=== PATIENT | male | born 1965 | race Caucasian/White ===

== ENCOUNTER → 2016-08-26 | Outpatient (CLI) | payer OTHER ==
[2016-08-26 15:32] LABS: BLOOD UREA NITROGEN 11 mg/dl (7-18); CARBON DIOXIDE 31 mmol/L (21-32); CHLORIDE 103 mmol/L (98-107); GLUCOSE 94 mg/dl (70-99); POTASSIUM 4.5 mmol/L (3.5-5.1); SODIUM 139 mmol/L (136-145)
[2016-08-26 15:39] LABS: CHOLESTEROL 163 mg/dl (0-200); CHOLESTEROL/HDL RATIO 3.5; FREE PSA 0.29 ng/ml; HDL CHOLESTEROL 46 mg/dl; LDL CHOLESTEROL CALCULATED 100 mg/dl; TRIGLYCERIDES 83 mg/dl (0-150); VERY LOW DENSITY LIPOPROT CALC 17 mg/dl
== END | disposition home or self-care (01) ==
LOC: C.LABMFLN 07:41
PROVIDERS: ATTEND Family Medicine
DX: Q21.1 Atrial septal defect (principal); Z13.220 Encounter for screening for lipoid disorders; R97.20 Elevated prostate specific antigen [PSA]

== ENCOUNTER 2019-05-31 09:18 | Inpatient (IN) ==
--- NOTE | 2019-05-18 13:36 | PAT Medication Instructions ---
Medication Instructions Date of Service May 18, 2019 Home Medications aspirin 81 mg PO QAM multivitamin 1 tab PO QAM ASK your prescriber and surgeon aspirin 81 mg PO QAM DO NOT take the morning of surgery multivitamin 1 tab PO QAM Other Notes If you have any questions please call us at [phone] or [phone] or [phone] or [phone]
--- NOTE | 2019-05-19 09:53 | Anesthesiology Consultation ---
Date of Service May 19, 2019 Assessment & Plan (1) Encounter for pre-operative examination: Chart Review Chart Review: Acceptable Risk for Surgery (pending cardio note ) and Patient seen in Pre Admission Testing Pt holding ASA 7-10 days prior to surgery- surgeon and cardio aware Pt scheduled to see cardio prior to surgery on 05/30/19 (cardio and surgeon aware day prior to surgery)- will attempt to get note. History Surgery Operation Date: 05/31/19 07:30 Proposed Procedures p Robotic Laparoscopic Assisted Radical Retropubic Prostatectomy, Possible Open, Pelvic Lymph Node Disection, Possible Tube Placement - Elan Salgado Height/Weight Height: 5 ft 8 in Weight: 92.1 kg Allergies Allergy/AdvReac Type Severity Reaction Status Date / Time banana Allergy Severe Swelling Verified 05/12/19 09:04 Penicillins Allergy Severe .Swelling Verified 05/12/19 09:04 Medications Home Medications Medication Instructions Recorded Confirmed Last Taken aspirin 81 mg PO QAM 11/02/18 05/12/19 Unknown multivitamin 1 tab PO QAM 01/05/19 05/12/19 Unknown Past Medical History Medical History (Updated 05/20/19 @ 15:05 by Jillian Fam PA-C) Atrial septal defect S/p repair (atrial septal defect secondary from repair [place] [facility] [place] ECHO showed no issues Hx of mitral valve disease S/P REPAIRED Prostate cancer 02/2019 TRALI (transfusion related acute lung injury) 2009 - [place] - AFTER MITRAL VALVE SURGERY NEED TRANSFUSION AND HAD REACTION AND DAMAGED LUNGS. WAS ON VENT FOR 3 WEEKS. RESIDUAL OCC SOB Exercise / Class Metabolic Activity II 4-5 Yardwork/Stairs/Walk up hill (one flight of stairs no chest pain or SOB) Past Family History Family History Father , 71yo Cancer metastatic prostate cancer Hypertension Heart murmur Mother Waldenstrom's syndrome Hypertension Sister No problems noted. Son No problems noted. Son No problems noted. Past Surgical History Surgical History H/O heart surgery Mitral valve prolapse repair;Complicated post op course with prolonged intubation H/O right knee surgery History of cholecystectomy Hx of cardiac cath 2009 --SMALL DEVICE IMPLANTED FOR PFO DONE AT [facility] Past Anesthesia History No Hx of Anesthesia Complications and No Family Hx of Anesthesia Complications History of PONV No Hx of PONV and No Hx of Motion Sickness Social History Smoking Status: Never smoker Do You Dip or Chew Tobacco: No Hx Alcohol Use: Yes alcohol intake frequency: holidays/special occasions only Hx Substance Use: No substance use type: does not use Review of Systems Patient denies chest pain, shortness of breath, dyspnea on exertion, reflux, cough, wheezing, palpitations. No seizures or CVA. 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 No blood clots. Blood transfusion 2009- s/p reaction No recent steroid use Physical Exam Vital Signs VITALS BP 114/75 P 66 TEMP 97.4 SP02 99% RESP 16 Constitutional no acute distress ENMT Mouth: no TMJ clicking Thyromental Distance: > or= 3.5 Finger Breadths (3.5) Mallampati Class: I ( (small airway)) No missing teeth Neck normal visual inspection; neck extension not limited Respiratory normal respiratory effort; no respiratory distress Auscultation: lungs clear to auscultation bilaterally; no wheezes Cardiovascular Rate/Rhythm: regular rate and regular rhythm Musculoskeletal Spine: normal cervical ROM and no pain with cervical ROM Neurologic moves all extremities Psychiatric Orientation: alert Testing Laboratory Results 05/19/19 10:14 05/19/19 10:14 Urine Color Yellow 05/19/19 10:14 Urine Appearance Clear (Clear) 05/19/19 10:14 Urine pH 7.5 (4.5-7.5) 05/19/19 10:14 Ur Specific [place] 1.014 (1.000-1.030) 05/19/19 10:14 Urine Protein Negative (Negative) 05/19/19 10:14 Urine Glucose (UA) Negative (Negative) 05/19/19 10:14 Urine Ketones Negative (Negative) 05/19/19 10:14 Urine Nitrite Negative (Negative) 05/19/19 10:14 Ur Leukocyte Esterase Negative (Negative) 05/19/19 10:14 Blood Type A Positive 05/19/19 10:14 Antibody Screen NEGATIVE 05/19/19 10:14 Electrocardiogram Date: 05/19/19 SR with PACs; LAD; NS ST abnormality. Compared to 10/2018 EKG- PACs are now present, T wave inversion less evident in anterolateral leads Chest X-Ray Date: 10/26/18 Findings: + NAD and + cardiomegaly (mild/stable ) Echocardiogram Date: 05/28/16 EF: 60% LV Function: normal RWMA: + none Valvular Disease: + no significant valvular disease Left ventricular cavity size is normal. Left ventricular wall thickness is normal/ no left ventricular mural thrombus. Mildly dilated right ventricle with normal systolic function. There is evidence of prior mitral valve repair functioning. Amplatzer occluder device noted across intra-atrial septum functioning appropriately. Other Testing CTA of chest- 11/02/18= no pulmonary embolism. No convincing evidence of acute intrathoracic pathology. Mild cardiomegaly. No advanced congestive changes or evidence of pulmonary edema. Pulmonary artery hypertension with elevated right heart pressures. Postsurgical changes of mitral annular repair. No pneumothorax. Central airways patent. Pulmonary arteries are not significantly enlarged relative to adjacent bronchi. No interlobular septal thickening. Bandlike opacities at the right lung base likely atelectasis or scarring. Respiratory motion artifact mildly degrades evaluation of the lung parenchyma. Minimal bibasilar groundglass opacities likely atelectasis or related to the phase of respiration.
[2019-05-19 10:49] LABS: Appearance Urine Clear (Clear); Bilirubin Urine Negative (Negative); Blood Urine Negative (Negative); Color Urine Yellow; Glucose Urine UA Negative (Negative); Ketones Urine Negative (Negative); Leukocyte Esterase Urine Negative (Negative); Nitrite Urine Negative (Negative); Protein Urine Negative (Negative); Specific Gravity Urine 1.014 (1.000-1.030); Urobilinogen Urine Negative (Negative); pH Urine 7.5 (4.5-7.5)
[2019-05-19 10:50] LABS: Basophils # (auto) 0.04 K/uL (0-0.2); Basophils % (auto) 0.6 %; Eosinophils # (auto) 0.13 K/uL (0-0.5); Eosinophils % (auto) 1.9 %; Hematocrit (blood only) 44.4 % (42-52); Immature Granulocytes # (auto) 0.01 K/uL (0.00-0.02); Immature Granulocytes % (auto) 0.1 %; Lymphocytes # (auto) 2.11 K/uL (1.2-3.4); Lymphocytes % (auto) 30.5 %; Mean Corpuscular Hemoglobin 30.4 pg (25-34); Mean Corpuscular Hgb Conc 33.8 g/dL (32-36); Mean Corpuscular Volume 90.1 fL (80-100); Mean Platelet Volume 8.8 fL (7.4-10.4); Monocytes # (auto) 0.66 K/uL (0.11-0.59); Monocytes % (auto) 9.6 %; Neutrophils # (auto) 3.96 K/uL (1.4-6.5); Neutrophils % (auto) 57.3 %; Platelet Count 205 K/uL (130-400); RDW Coefficient of Variation 12.6 % (11.5-14.5); RDW Standard Deviation 41.1 fL (36.4-46.3); Red Blood Count 4.93 M/uL (4.7-6.1); White Blood Count 6.91 K/uL (4.8-10.8)
[2019-05-19 12:17] LABS: BUN Creatinine Ratio 11.2 (10-20); Calcium 9.4 mg/dl (8.5-10.1); Est GFR (African American) 98.5; Est GFR (Non-African American) 84.9; Potassium 3.9 mmol/L (3.5-5.1)
--- NOTE | 2019-05-19 17:35 | Electrocardiogram Report ---
Test Reason : Blood Pressure : / mmHG Vent. Rate : 066 BPM Atrial Rate : 066 BPM P-R Int : 160 ms QRS Dur : 108 ms QT Int : 424 ms P-R-T Axes : 044 -68 005 degrees QTc Int : 444 ms Sinus rhythm with Premature atrial complexes Left axis deviation Nonspecific ST abnormality Abnormal ECG When compared with ECG of 02-NOV-2018 20:09, Premature atrial complexes are now Present T wave inversion less evident in Anterolateral leads Confirmed by Kendell Jimenez ([id number]) on 05/19/2019 5:35:10 PM Referred By: Bossman Jarrett Confirmed By:David Jimenez
[~2019-05-31 09:18] MED LIST: CEFAZOLIN 3000MG 72.5 ML IV SCH; HEPARIN SOD (PORCINE) 5,000 UNITS/ML VIAL IV SCH; HEPARIN SOD (PORCINE) 5,000 UNITS/ML VIAL SQ SCH; LR 15ML/HR IV SCH; ROCURONIUM BROMIDE 10 MG/ML 5 ML VIAL ONE
[2019-05-31] MEDS ORDERED: HEPARIN SOD 5,000 UNIT/0.5 ML VIAL SC SCH (10:00)
[2019-05-31] MEDS ORDERED: ePHEDrine sulfate 50 MG/ML AMP IV PRN (11:10)
[2019-05-31] MEDS ORDERED: HYDROmorphone INJ 1 MG/ML SYRINGE IV PRN (11:10)
[2019-05-31] MEDS ORDERED: ATROPINE SULFATE 0.1 MG/ML 10ML SYR IV PRN (11:10)
[2019-05-31] MEDS ORDERED: fentaNYL citrate 100 MCG/2 ML VIAL IV PRN (11:10)
[2019-05-31] MEDS ORDERED: ONDANSETRON INJ 2 MG/ML 2 ML VIAL IV PRN ×2 (11:10→18:43)
[2019-05-31] MEDS ORDERED: ePHEDrine sulfate 50 MG/ML AMP ONE (11:27)
[2019-05-31] MEDS ORDERED: PROPOFOL IV EMULSION 10 MG/ML 20 ML VIAL IV ONE (11:27)
[2019-05-31] MEDS ORDERED: NEOSTIGMINE METHYLSULFATE 5 MG/5 ML SYR ONE (11:27)
[2019-05-31] MEDS ORDERED: fentaNYL citrate 100 MCG/2 ML VIAL ONE (11:27)
[2019-05-31] MEDS ORDERED: ONDANSETRON INJ 2 MG/ML 2 ML VIAL ONE ×2 (11:27→11:34)
[2019-05-31] MEDS ORDERED: DEXAMETHASONE SOD INJ 4 MG/ML VIAL ONE ×2 (11:27→13:14)
[2019-05-31] MEDS ORDERED: GLYCOPYRROLATE 0.2 MG/ML VIAL ONE (11:27)
[2019-05-31] MEDS ORDERED: PHENYLEPHRINE HCL 10 MG/ML VIAL ONE (11:27)
[2019-05-31] MEDS ORDERED: SUCCINYLCHOLINE CHLORIDE 20 MG/ML 10 ML VIAL ONE (11:27)
[2019-05-31] MEDS ORDERED: LIDOCAINE HCL 2% 2 ML VIAL/AMP(20MG/ML) INFIL ONE (11:27)
[2019-05-31] MEDS ORDERED: MIDAZOLAM HCL 1 MG/ML 2ML VIAL ONE (11:27)
--- NOTE | 2019-05-31 11:44 | History & Physical Bridge Note ---
Date of Service May 31, 2019 History & Physical Bridge Note I have examined the patient, reviewed the History & Physical and in the interval since the performance of the History & Physical I have noted the following changes of clinical significance: no changes noted
[2019-05-31] MEDS ORDERED: CLINDAMYCIN 900 MG in DEXTROSE 5% 50 ML IV STA (12:05)
[2019-05-31] MEDS ORDERED: BUPIVACAINE 0.5 % 5 MG/1 ML MPF 30ML VIAL ONE (12:09)
[2019-05-31] MEDS ORDERED: BELLADONNA/OPIUM SUPP 60 MG SUPP PR ONE (12:53)
[2019-05-31] MEDS ORDERED: SODIUM CHLORIDE 0.9% INJ 10 ML VIAL ONE (13:13)
[2019-05-31] MEDS ORDERED: HYDROmorphone INJ 2 MG/ML SYR/VIAL ONE (13:13)
[2019-05-31] MEDS ORDERED: raNITIdine HCl 25 MG/ML VIAL IV ONE (13:14)
[2019-05-31] MEDS ORDERED: LARYING-O-JET KIT (LTA) ONE (13:14)
[2019-05-31] MEDS ORDERED: SURGICEL ABSORB HEMOSTAT 2IN X 14IN TOP ONE (13:40)
[2019-05-31] MEDS ORDERED: SUGAMMADEX SODIUM 200 MG/2 ML VIAL IV ONE (14:42)
[2019-05-31] MEDS ORDERED: KETOROLAC 30 MG/ML VIAL ONE (15:55)
--- NOTE | 2019-05-31 16:36 | Operative Report ---
PG Post Operative Report Pre & Post Diagnosis Operation Date: 05/31/19 11:30 Pre-Op Diagnosis: Prostate Cancer Post-Op Diagnosis: Prostate Cancer I identified the patient and participated in the time-out.: Yes Procedure Operation Date: 05/31/19 11:30 Actual Procedures p Robotic Laparoscopic-Assisted Radical Retropubic Prostatectomy, Bilateral Pelvic Lymph Node Dissection(Bilateral) - Bossman Jarrett MD Surgeon Kendell Jarrett MD Hand Paster Alice Booker Estimated Blood Loss 100 Findings Consistent with Post-Op Diagnosis Specimens 1. Periprostatic fat 2. Left pelvic lymph nodes 3. Right pelvic lymph nodes 4. Prostate and seminal vesicles Description of Procedure The patient was identified in the preoperative holding area, appropriate informed consents were reviewed and completed, and he was transported to the operating suite. Subcutaneous heparin was administered in the pre-operative holding area. Upon arrival in the operating suite, he received appropriate antibiotics and general anesthesia. He was positioned in dorsal lithotomy, a B&O suppository was inserted after digital rectal exam, and he was prepped and draped in standard fashion. A Mc catheter was inserted in the sterile field. A Veress needle was passed per umbilicus with uniform insufflation of the abdomen to 15mmHg. He was placed in steep Trendelenburg position. A periumbilical incision was then made to accommodate a 12mm Visiport with 10mm 0degree laparoscope. Inspection of the abdomen was carried out, and there was no evidence of traumatic entry or injury secondary to the Veress needle. After confirming a clear anterior abdominal wall, ports were subsequently placed in standard robotic prostatectomy fashion without incident. Inspection of the deep pelvis was unremarkable with minimal occasions from the sigmoid colon. On inspection I made an incision in the pouch of Alejo, overlying the seminal vesicles. Both SVs as well as the ampullae of the vasa were entirely dissected, with the vasa transected 3cm from the prostate. Minimal cautery was used throughout this dissection, 2 clips were placed on each side along the tip of the SV and then along the lateral edge to control vessels. The medial umbilical ligaments were then controlled with bipolar electrocautery just inferior to the umbilicus. Following cauterization, they were divided utilizing monopolar cautery. A peritoneal incision was carried from this location to the medial aspect of the internal inguinal rings bilaterally with c are to avoid opening through the ring. This incision was concluded when the vas deferens was reached. Dissection of the bladder and prostate off of the posterior aspect of the pubic arch was completed allowing full visualization of the prostate. The fat overlying the prostate was removed en bloc and passed off the table as a specimen labeled "periprostatic fat". The endopelvic fascia was cleared during this portion of the procedure, and subsequently opened - first on the right and then the left. The incision through the endopelvic fascia began near the prostate-bladder junction and was carried to the apex with extreme care to preserve all lateral levator musculature as well as the periurethral musculature and sphincter complex. I attempted to do an apical sparing dissection with preservation of the bilateral puboprostatic ligaments. I oversewed the DVC at this time utilizing a 2 OV lock suture -with focus on the most superficial aspects of the venous complex. I did not trim the suture at the conclusion of this closure leaving it for further use as I transect the apex of the prostate later in the case. The lymph node dissection was then conducted. External iliac vessels were identified on the pelvic side wall. The packet of fat and lymphatic tissue that resides just under the iliac vein was elevated and off of the vein with a split and roll technique. The packet was dissected laterally to the circumflex vein and distally to the obturator nerve which was preserved. The proximal aspect of the packet was carried towards the bifurcation of the iliac vessels. A combination of monopolar and bipolar cautery were used to assist with control. Clips were placed at the proximal and distal aspects of the packet prior to transection. After completing the dissection on both sides, the packets were collected and passed off of the table as specimens labeled "pelvic lymph nodes". My attention then returned to the prostate, with identification of the bladder neck aided by gentle traction on the Mc catheter and lateral to medial pressure at the presumed level of the bladder neck with the robotic instruments. An anterior cystotomy was made, the Mc balloon deflated and the catheter guided through the incision to allow anterior retraction. I attempted to preserve maximal bladder neck musculature as I circumferentially dissected around the bladder neck. After incision through the posterior aspect of the mucosa, the dissection was carried through detrusor muscle until the bilateral ampullae of the vasa were identified. The previously dissected vasa and SVs were brought through the incision and used to elevated the prostate anteriorly. A posterior plane behind the prostate was then developed - splitting Denonvilliers's fascia. This dissection was carried as far as possible towards the apex as well as far as possible laterally. I then performed a retrograde nerve sparing. I began by dissecting from the posterior plane out laterally at the distal aspect of the prostate adjacent to the apex. This entirely freed the distal aspect of the neurovascular bundle. I then carried that dissection retrograde towards the base of the prostate. Ultimately the only remaining attachments were the bilateral pedicles to the prostate and the most proximal aspect of the neurovascular bundle. A series of Weck clips were used to divide these 2 with minimal to no cautery used. This allowed an aggressive nerve sparing bilaterally. There were no findings concerning for extraprostatic extension throughout this dissection. The apical attachments of the prostate were remaining at that stage. The DVC was divided with bipolar electrocautery. Caridad-prostatic tissue incised with sharp dissection and monopolar cautery. I utilized the remaining aspect of the 2-0 V lock suture to oversew the remainder/deep portion of the DVC. There was excellent hemostasis. After exposure of the true apex of the prostate and the urethra, an incision was made immediately adjacent to the apex of the prostate, sharply dividing urethra without cautery. The prostate was entirely freed at that point, and collected in an EndoCatch bag before being moved out of the field of vision. Hemostasis was obtained with meticulous suture ligation of oozing vessels/veins along the neurovascular pedicles using a 2 oh/3 OV lock suture. After confirming excellent hemostasis I completed a posterior reconstruction again utilizing a 3-0 Vicryl suture. I then completed my urethral anastomosis utilizing a double-armed V lock stitch. A new Mc catheter was inserted and the bladder was filled showing no evidence of leak. There was excellent hemostasis around the anastomotic area. I placed a Oscar style suture to parag the peritoneum against the area of the p rior lymph node dissection. The robot was undocked, the specimen extracted through expansion of the caridad- umbilical camera port. The fascia was closed with a series of 0-PDS figure of 8 stitches. The right staff assistant port was closed in two layers - with a figure of 8 0-Vicryl to reapproximate the fascia followed by 4-0 Monocryl to close the skin. Monocryl was used to close all other skin incisions. All wounds were dressed with Dermabond. The case was concluded and the patient taken to the PACU in stable condition. Tomasa Booker was present and scrubbed throughout assisting from incision to closure. I attest to the content of the Intraoperative Record and any orders documented therein. Any exceptions are noted below.
[2019-05-31 16:53] LABS: Basophils # (auto) 0.02 K/uL (0-0.2); Basophils % (auto) 0.1 %; Eosinophils # (auto) 0.01 K/uL (0-0.5); Eosinophils % (auto) 0.1 %; Hemoglobin 15.2 g/dL (14.0-18.0); Immature Granulocytes # (auto) 0.04 K/uL (0.00-0.02); Immature Granulocytes % (auto) 0.3 %; Lymphocytes # (auto) 0.72 K/uL (1.2-3.4); Lymphocytes % (auto) 4.8 %; Mean Corpuscular Hemoglobin 30.8 pg (25-34); Monocytes # (auto) 0.28 K/uL (0.11-0.59); Monocytes % (auto) 1.9 %; Neutrophils # (auto) 13.96 K/uL (1.4-6.5); Neutrophils % (auto) 92.8 %; Platelet Count 182 K/uL (130-400); RDW Coefficient of Variation 12.4 % (11.5-14.5); RDW Standard Deviation 39.5 fL (36.4-46.3); Red Blood Count 4.94 M/uL (4.7-6.1); White Blood Count 15.03 K/uL (4.8-10.8)
[2019-05-31 17:01] LABS: Mean Corpuscular Hgb Conc 35.3 g/dL (32-36)
[2019-05-31 17:10] LABS: BUN Creatinine Ratio 12.4 (10-20); Calcium 8.6 mg/dl (8.5-10.1); Creatinine Clr Calc Pharmacy 75.5 ml/min; Est GFR (African American) 79.8; Est GFR (Non-African American) 68.8; Potassium 4.2 mmol/L (3.5-5.1)
--- NOTE | 2019-05-31 17:18 | Anesthesiology Progress Note ---
Date of Service May 31, 2019 Anesthesia Post Procedure Vital Signs Vital Signs: Temp Pulse Pulse Resp BP Pulse Ox 05/31/19 17:15 37 C 72 12 127/76 96 05/31/19 17:05 37 C 70 12 128/79 99 05/31/19 16:55 73 12 123/78 99 05/31/19 16:45 73 12 134/82 97 05/31/19 16:35 79 20 128/78 97 05/31/19 16:26 37 C 76 10 L 117/78 98 05/31/19 09:37 36.5 C 69 20 130/71 97 Transfer of Care Handoff Completed per policy Notes Mental Status: alert / awake / arousable and participated in evaluation Patient Amnestic to Procedure: Yes Nausea / Vomiting: adequately controlled Pain: adequately controlled Airway Patency, RR, SpO2: stable & adequate BP & HR: stable & adequate Hydration State: stable & adequate Anesthetic Complications: no major complications apparent and Pt Satisfied with anesthetic care
[2019-05-31] MEDS ORDERED: KETOROLAC TROMETHAMINE 15 MG/ML VIAL IV PRN (18:43)
[2019-05-31] MEDS ORDERED: MoRPHine SULFATE 4 MG/ML 1 ML CARP\\VIAL IV PRN ×2 (18:43→18:53)
[2019-05-31] MEDS ORDERED: OXYCODONE HCL IR 5 MG TAB (IMMEDIATE RELEASE) PO PRN ×2 (18:43)
[2019-05-31] MEDS ORDERED: MoRPHine SULFATE 2 MG/ML CARP IV PRN (18:55)
[2019-05-31] MEDS: LACTATED RINGER'S 1,000 ML IV SCH (20:29)
[2019-05-31] MEDS: FAMOTIDINE 10 MG TABLET PO SCH (20:30)
[2019-05-31] MEDS: CIPROFLOXACIN 400 MG/200 ML BAG IV SCH (20:30)
[2019-05-31] MEDS: DOCUSATE SODIUM 100 MG CAP PO SCH (20:30)
[2019-05-31] MEDS: ACETAMINOPHEN 1,000 MG/100 ML VIAL IV SCH (21:49)
[2019-05-31] MEDS: HEPARIN SOD 5,000 UNIT/0.5 ML VIAL SQ SCH (21:51)
[2019-06-01] MEDS: LACTATED RINGER'S 1,000 ML IV SCH ×3 (00:40→17:56)
[2019-06-01] MEDS: ACETAMINOPHEN 1,000 MG/100 ML VIAL IV SCH ×3 (05:28→21:16)
[2019-06-01 06:29] LABS: Mean Corpuscular Hgb Conc 33.5 g/dL (32-36); Mean Platelet Volume 8.8 fL (7.4-10.4); Platelet Count 183 K/uL (130-400)
[2019-06-01 07:02] LABS: Basophils # (auto) 0.01 K/uL (0-0.2); Basophils % (auto) 0.1 %; Hematocrit (blood only) 38.2 % (42-52); Hemoglobin 12.8 g/dL (14.0-18.0); Immature Granulocytes # (auto) 0.03 K/uL (0.00-0.02); Immature Granulocytes % (auto) 0.3 %; Lymphocytes # (auto) 0.72 K/uL (1.2-3.4); Mean Corpuscular Hemoglobin 29.7 pg (25-34); Mean Corpuscular Volume 88.6 fL (80-100); Monocytes # (auto) 0.92 K/uL (0.11-0.59); Monocytes % (auto) 7.7 %; Neutrophils # (auto) 10.32 K/uL (1.4-6.5); Neutrophils % (auto) 85.9 %; RDW Coefficient of Variation 12.5 % (11.5-14.5); RDW Standard Deviation 40.2 fL (36.4-46.3); Red Blood Count 4.31 M/uL (4.7-6.1)
[2019-06-01 07:03] LABS: BUN Creatinine Ratio 13.4 (10-20); Calcium 8.4 mg/dl (8.5-10.1); Creatinine Clr Calc Pharmacy 91.7 ml/min; Est GFR (African American) 100.9; Est GFR (Non-African American) 87.1; Potassium 4.5 mmol/L (3.5-5.1)
--- NOTE | 2019-06-01 07:37 | Anesthesiology Progress Note ---
Date of Service June 01, 2019 Anesthesia Post Procedure Vital Signs Vital Signs: Temp Pulse Pulse Resp BP Pulse Ox 06/01/19 03:23 36.9 C 69 16 120/71 93 05/31/19 22:37 37.2 C 71 16 113/71 93 05/31/19 20:40 36.6 C 81 16 118/78 94 05/31/19 19:35 36.9 C 78 16 109/66 96 05/31/19 18:40 36.9 C 78 16 130/80 100 05/31/19 17:35 36.4 C L 77 16 126/76 93 05/31/19 17:15 37 C 72 12 127/76 96 05/31/19 17:05 37 C 70 12 128/79 99 05/31/19 16:55 73 12 123/78 99 05/31/19 16:45 73 12 134/82 97 05/31/19 16:35 79 20 128/78 97 05/31/19 16:26 37 C 76 10 L 117/78 98 05/31/19 09:37 36.5 C 69 20 130/71 97 Notes Mental Status: alert / awake / arousable and participated in evaluation Patient Amnestic to Procedure: Yes Nausea / Vomiting: adequately controlled Pain: adequately controlled Airway Patency, RR, SpO2: stable & adequate BP & HR: stable & adequate Hydration State: stable & adequate Anesthetic Complications: no major complications apparent and Pt Satisfied with anesthetic care
[2019-06-01] MEDS: CIPROFLOXACIN 400 MG/200 ML BAG IV SCH (07:50)
--- NOTE | 2019-06-01 07:53 | Urology Progress Note ---
Date of Service June 01, 2019 Assessment & Plan (1) Carcinoma of prostate: Postoperative day #1 status post robotic prostatectomy Recovering appropriately thus far Advance diet Ambulate Stop IV fluids later today Possible DC home this afternoon or tomorrow Subjective Progressing appropriately thus far No nausea Mild gas related discomfort Urine clearing Ambulating Ready for some food Physical Exam Physical Exam: Incisions appropriate Urine clear Results & Data Vital Signs (Past 12 Hours) Vital Signs Temp Pulse Resp BP Pulse Ox 06/01/19 07:39 37 C 63 16 100/61 94 06/01/19 03:23 36.9 C 69 16 120/71 93 05/31/19 22:37 37.2 C 71 16 113/71 93 05/31/19 20:40 36.6 C 81 16 118/78 94 PG Care Time/CCT Total # of Minutes Spent Total Time Spent with Patient: Total time spent is greater than 50% in coordination of care (as documented) at patient's floor/unit and/or counseling patient: Coding Level of Care Code None Diagnoses Carcinoma of prostate C61
[2019-06-01] MEDS: MULTIVITAMIN TAB PO SCH (07:58)
[2019-06-01] MEDS: DOCUSATE SODIUM 100 MG CAP PO SCH ×2 (07:58→21:16)
[2019-06-01] MEDS: FAMOTIDINE 10 MG TABLET PO SCH ×2 (07:58→21:16)
[2019-06-01] MEDS: HEPARIN SOD 5,000 UNIT/0.5 ML VIAL SQ SCH ×3 (10:15→21:15)
[2019-06-02] MEDS: LACTATED RINGER'S 1,000 ML IV SCH (01:50)
[2019-06-02] MEDS: ACETAMINOPHEN 1,000 MG/100 ML VIAL IV SCH ×2 (05:10→13:54)
[2019-06-02 06:21] LABS: Basophils # (auto) 0.03 K/uL (0-0.2); Basophils % (auto) 0.3 %; Eosinophils # (auto) 0.04 K/uL (0-0.5); Eosinophils % (auto) 0.4 %; Hematocrit (blood only) 37.7 % (42-52); Hemoglobin 12.5 g/dL (14.0-18.0); Immature Granulocytes # (auto) 0.02 K/uL (0.00-0.02); Immature Granulocytes % (auto) 0.2 %; Lymphocytes # (auto) 3.05 K/uL (1.2-3.4); Lymphocytes % (auto) 31.6 %; Mean Corpuscular Hemoglobin 30.2 pg (25-34); Mean Corpuscular Hgb Conc 33.2 g/dL (32-36); Mean Corpuscular Volume 91.1 fL (80-100); Mean Platelet Volume 8.3 fL (7.4-10.4); Monocytes # (auto) 0.91 K/uL (0.11-0.59); Monocytes % (auto) 9.4 %; Neutrophils % (auto) 58.1 %; Platelet Count 133 K/uL (130-400); RDW Coefficient of Variation 12.9 % (11.5-14.5); RDW Standard Deviation 42.4 fL (36.4-46.3); Red Blood Count 4.14 M/uL (4.7-6.1); White Blood Count 9.65 K/uL (4.8-10.8)
[2019-06-02 06:52] LABS: BUN Creatinine Ratio 12.6 (10-20); Calcium 8.5 mg/dl (8.5-10.1); Creatinine Clr Calc Pharmacy 89.9 ml/min; Est GFR (African American) 98.5; Est GFR (Non-African American) 84.9; Potassium 4.3 mmol/L (3.5-5.1)
[2019-06-02] MEDS: HEPARIN SOD 5,000 UNIT/0.5 ML VIAL SQ SCH (08:40)
--- NOTE | 2019-06-02 08:43 | Urology Progress Note ---
Date of Service June 02, 2019 Assessment & Plan (1) Carcinoma of prostate: 53 year-old male postoperative day #2 status post robotic prostatectomy. Recovering appropriately. Rojo catheter draining today without clots. Continue ambulation and current diet. Continue with PRN dressing changes. Convert rojo to leg bag and provide teaching. Will plan on rounding again later this afternoon. Discharge home if doing well at that time. Patient in agreement with plan. Subjective Patient sitting in bed, no distress. Denies fever or chills. Reports pain is controlled. Denies nausea or vomiting. Ambulating independently. Rojo catheter did require irrigation last evening due to clots. No further irrigation needed since. Rojo catheter now draining clear yellow with pink-tinged sediment. Does appear hesitant to be discharged - would like to wait to see how morning progresses. Denies additional complaints today. Review of Systems Constitutional: as per Subjective / HPI; no fever and no chills Gastrointestinal: as per Subjective / HPI; no nausea and no vomiting Genitourinary: + as per Subjective / HPI Physical Exam 2 Constitutional: well developed and well nourished; no acute distress and not ill appearing Respiratory: normal respiratory effort and able to speak in complete sentences; no respiratory distress and no audible wheezes Gastrointestinal (Abdomen): Inspection/Auscultation: abdomen normal to inspection; abdomen not distended Percussion/Palpation: + abdomen tender (Mildly tender) and abdomen soft; no guarding Skin: Lap sites to abdomen well-approximated without erythema. Serosanguineous drainage noted to right abdominal lap site. Dressing applied by nursing staff. Dermabond intact. Psychiatric: Orientation: alert, oriented x 3 and cooperative Affect: euthymic affect Genitourinary: no CVA tenderness Rojo catheter intact draining clear yellow urine with pink-tinged sediment. No clots noted. Results & Data Vital Signs (Past 12 Hours) Vital Signs Temp Pulse Pulse Resp BP BP Pulse Ox 06/02/19 07:55 36.5 C 57 L 20 104/64 95 06/01/19 23:25 36.6 C 60 16 110/69 96 PG Care Time/CCT Total # of Minutes Spent Total Time Spent with Patient: Total time spent is greater than 50% in coordination of care (as documented) at patient's floor/unit and/or counseling patient: Coding Level of Care Code None Diagnoses Carcinoma of prostate C61
[2019-06-02] MEDS: FAMOTIDINE 10 MG TABLET PO SCH (08:44)
[2019-06-02] MEDS: MULTIVITAMIN TAB PO SCH (08:45)
[2019-06-02] MEDS: DOCUSATE SODIUM 100 MG CAP PO SCH (08:45)
--- NOTE | 2019-06-16 08:24 | Discharge Summary ---
Date of Service June 16, 2019 Admission HPI Per Admitting Provider Presenting for robotic prostatectomy as definitive treatment of his prostate cancer Principal Diagnosis Prostate cancer Discharge Data Allergies Allergy/AdvReac Type Severity Reaction Status Date / Time banana Allergy Severe Swelling Verified 06/06/19 14:29 Penicillins Allergy Severe .Swelling Verified 06/06/19 14:29 Procedures Performed Operation Date: 05/31/19 11:30 Actual Procedures p Robotic Laparoscopic-Assisted Radical Retropubic Prostatectomy, Bilateral Pelvic Lymph Node Dissection(Bilateral) - Bossman Jarrett MD Hospital Course (1) Carcinoma of prostate: Patient admitted for a robotic prostatectomy - details of the procedure as dictated previously in my operative report - in summary, he tolerated the procedure very well - he was in stable condition overnight with appropriate urine output and stable labs - he was subsequently discharged home with a rojo catheter - he was in stable condition at the time of discharge Total Time Total Time Spent Total Time Spent (In Minutes): 30 minutes Discharge Plan Discharge Items Patient Disposition: Home - Self-Care Reason For Visit: Prostate Cancer Discharge Diagnosis: Prostate Cancer Condition on Discharge: Good Activity: Per Instructions section Lifting: No more than 25 pounds Bathing Comment: Ok to shower in 1 day, no soaking/tub bath until catheter removal Sexual Activity: Wait until after follow-up appointment Exercise/Sports: Wait until after follow-up appointment Driving/Machine Use: No driving while taking prescription pain medication Non-emergency contact: Urologist Call non-emergency contact if: your pain is not controlled, your pain is concerning for you, you have a fever, your temperature is above 101, your wound has increased redness, your wound has increased drainage and your wound pain has increased Follow-up/Referrals: Bossman Jarrett MD [Physician] - 06/22/19 3:45 pm Mika Staton MD [Primary Care Provider] - 06/06/19 2:30 pm [facility],Nurse [Physician] - 06/07/19 10:40 am Diet: Regular Addtl Attending Provider Instructions: Please take all medications as prescribed and keep all follow-ups as scheduled. Please call our office at [phone] with any questions, concerns or need to reschedule appointments for any reason. We are happy to assist you. We have sent an antibiotic to your pharmacy of choice. Please begin antibiotic as prescribed the day BEFORE your scheduled voiding trial at [facility]. Please continue antibiotic every 12 hours through the day AFTER your voiding trial. Activity: We recommend having someone with you for the first few days after surgery to help care for you. For the first 2 weeks after surgery, we would like you to get up and walk around your house. However, we recommend limit physical activity that would increase your heart rate. This will allow your body to rest and heal. Take naps if you feel tired. Don't lift anything heavier than 10 pounds, mow the law or ride a bicycle until your follow-up appointment. Please avoid long car rides. Home Care: Unless directed otherwise, drink 6 to 8 glasses of water a day (enough to keep your urine light colored). This will also help keep a healthy flow of urine. We recommend using a stool softener for the first two weeks to avoid constipation. Rooj Catheter or Suprapubic Catheter care: Keep the catheter well secured with either a leg back or leg strap with large bag. Empty your bag when it's about half full. You may notice some blood in the bag. This is normal after surgery and while the catheter is in place. Use mild soap (such as Dove or Dial) and water to wash the catheter and the head of your penis daily, or more frequently if needed. Return to your normal diet, we encourage good protein intake to promote healing. You may shower as normal. Please avoid tub baths or soaking until catheter removed and incisions well healed. Wearing sweat pants while you have the catheter is recommended, they will be more comfortable. Follow-up Your follow up appointments for having your catheter removed, and follow up with your physician should already be scheduled. If you have any questions regarding this, please contact our office. Your final pathology report will be discussed at your physician follow-up appointment. Call [facility] at [phone] right away if you have any of the following: Chest pain or trouble breathing (call [phone] or go to the hospital) Fever of 101F or higher, uncontrolled vomiting Heavy bleeding, clots, or bright red blood from the catheter Catheter that falls out or stops draining Foul-smelling discharge from your catheter Redness, swelling, warmth, or increased pain at your incision site Drainage, pus, or bleeding from your incision Pending Studies at Discharge: Yes (pathology) Stand-Alone Forms: My [facility], Opioid Pain Management, Smoking Cessation Medications and DC Order Prescriptions: New docusate sodium [Colace] 100 mg capsule 100 mg PO BID Qty: 60 RF: 0 Continued multivitamin tablet 1 tab PO QAM RF: 0 aspirin 81 mg Tablet,Delayed Release (Dr/Ec) 81 mg PO QAM RF: 0 No Action acetaminophen 500 mg tablet 500 mg PO Q6H PRN (Reason: pain) Qty: 30 RF: 0 Discharge Orders: Discharge Order (Routine); Ordered 06/02/19 Ordered By: Karla Deleon Admission Data Admit Date/Time: 05/31/19 15:57 Attending Provider: Bossman Jarrett Admit Provider: Bossman Jarrett Primary Care Provider: Mika Staton Other Providers: Juan Pyle Other Interventions: Discharge Summary Assessment (RN) Last Done: 06/02/19 14:28 DC Date/Time DO NOT enter until pt leaves facility: 06/02/19 14:44 Coding Level of Care Code D/C Day Management <30 mins Diagnoses Carcinoma of prostate C61
== END 2019-06-02 14:44 | disposition home or self-care (01) | DRG 708 ==
LOC: ASU 09:18 → 3N 15:57